=== PATIENT | female | born 1960 | race Caucasian/White ===

== ENCOUNTER → 2024-01-02 | Day surgery (SDC) | payer MEDICARE ==
[~2024-01-02] MED LIST: ACCRUFER30 MG PO; ACETAMINOPHEN 1000 MG/100 ML 100 ML IV ONE; AMIODARONE HCL200 MG PO; AMITIZA24 MCG PO; AZO BLADDER CO300 MG PO; BOTULINUM TOXIN TYPE A 100 UNIT VIAL IM ONE; CALCIUM CARBON500 MG PO; CARAFATE1 GM/10 ML PO; CRESTOR10 MG PO; DEXAMETHASONE SOD PHOS INJ 4 MG/ML SDV ONE; ELMIRON100 MG PO; EPHEDRINE SULFATE INJ 50 MG/ML VIAL ONE; FENTANYL CITRATE/PF 100MCG/2 ML INJ ONE; FLOMAX0.4 MG PO; FLONASE ALLERG9.9 ML INH; FOLIC ACID0.4 MG PO; HYDROCODON-ACE1 EAC9 PO; HYDROMET SYRUP473 ML PO; HYDROXYZINE HCL25 MG PO; HYLANDS LEG CRAMPS PO; HYOPHEN TABLET1 EACH PO; IOPAMIDOL 610MG/1ML 300 MG/ML VIAL IV ONE; LEVOTHYROXINE100 MC1 PO; LEVOTHYROXINE88 MCG PO; LIDOCAINE HCL 2% LOCAL INJ 5 ML SDV VIAL INJ ONE; LORATADINE10 MG PO; MIDODRINE HCL5 MG PO; MIRTAZAPINE15 MG PO; MONTELUKAST SOD10 MG PO; MORPHINE SULFAT30 M2 PO; NEURONTIN300 MG PO; NITROFURANTOIN100 MG PO; OMEPRAZOLE40 MG PO; ONDANSETRON HCL INJ 2MG/ML 2ML 2 MG/ML VIAL ONE; ONDANSETRON ODT8 MG PO; PROPOFOL IV EMULSION 10 MG/ML 20 ML VIAL ONE; PROZAC40 MG PO; SEVOFLURANE INHAL SOLN 250 ML PEN BTL ONE; SPIRONOLACTONE25 MG PO; SUDAFED PE SIN1 EAC2 PO; SUMATRIPTAN PO; SUMATRIPTAN SUC25 MG PO; VITAMIN C1000 MG PO; VITAMIN D3 COM1 EACH PO
[2024-01-02] MEDS: GENTAMICIN 80MG/NS 100 ML 100 ML IV ONE (06:29)
[2024-01-02] MEDS: LACTATED RINGER'S 1,000 ML ONE (06:30)
[2024-01-02] MEDS: MEROPENEM 1 GM VIAL ONE (06:30)
[2024-01-02] MEDS: FENTANYL CITRATE/PF 100MCG/2 ML INJ ONE (08:52)
[2024-01-02] MEDS: PHENAZOPYRIDINE HCL 100 MG TAB ONE (09:05)
[2024-01-02 09:55] VITALS: BP 134/75; PULSE 60; RESP 18; O2SAT 99
== END | disposition home or self-care (01) ==
LOC: OR 05:10
PROVIDERS: ATTEND Urology
DX: N13.1 Hydronephrosis with ureteral stricture, not elsewhere classified (principal); Z46.6 Encounter for fitting and adjustment of urinary device; N39.41 Urge incontinence; N81.6 Rectocele; N95.2 Postmenopausal atrophic vaginitis; I25.10 Atherosclerotic heart disease of native coronary artery without angina pectoris; I25.2 Old myocardial infarction; E78.5 Hyperlipidemia, unspecified; I48.91 Unspecified atrial fibrillation; E03.9 Hypothyroidism, unspecified; N18.4 Chronic kidney disease, stage 4 (severe); Z88.1 Allergy status to other antibiotic agents; Z88.0 Allergy status to penicillin; Z88.2 Allergy status to sulfonamides; Z88.8 Allergy status to other drugs, medicaments and biological substances; Z01.812 Encounter for preprocedural laboratory examination; Z01.818 Encounter for other preprocedural examination; Z79.899 Other long term (current) drug therapy; Z87.891 Personal history of nicotine dependence
CPT/HCPCS: 36415; 52287; 52332; 52344; 71046; 74018; 74420; 84550; 87086; C1769; C2617; J0131; J0587; J1100; J1580; J2001; J2185; J2405; J2704; J3010; J7121; Q9967

== ENCOUNTER 2024-05-07 06:23 | Inpatient (IN) | payer MEDICARE ==
[2024-05-05 14:53] LABS: BASOPHILS # (AUTO) 0.1 (0.0-0.1); BASOPHILS % 0.9 % (0.0-1.0); EOSINOPHILS # (AUTO) 0.3 (0.0-0.4); EOSINOPHILS % 5.6 % (0.0-6.0); HEMOGLOBIN 12.1 g/dL (12.0-16.0); LYMPHOCYTES # (AUTO) 1.8 (1.0-3.2); LYMPHOCYTES % 34.1 % (18.0-39.1); MEAN CORPUSCULAR HEMOGLOBIN 29.1 pg (28-32); MEAN CORPUSCULAR HGB CONC 30.3 g/dL (31-35); MEAN CORPUSCULAR VOLUME 96.2 fL (81-99); MONOCYTES # (AUTO) 0.4 (0.2-0.8); MONOCYTES % 6.7 % (4.4-11.3); NEUTROPHILS # (AUTO) 2.8 (2.1-6.9); NEUTROPHILS % 52.5 % (38.7-80.0); PLATELET COUNT 177 x10e3/uL (140-360); RED BLOOD COUNT 4.16 x10e6/uL (3.6-5.1); RED CELL DISTRIBUTION WIDTH 13.4 % (11.7-14.4); WHITE BLOOD COUNT 5.36 x10e3/uL (4.8-10.8)
[2024-05-05 15:03] LABS: INR 0.82; PROTHROMBIN TIME 11.9 seconds (11.9-14.5)
[2024-05-05 15:04] LABS: PARTIAL THROMBOPLASTIN TIME 24.8 seconds (23.8-35.5)
[2024-05-05 15:13] LABS: ANION GAP 16.1 mmol/L (8-16); CREATININE, SERUM 3.55 mg/dL (0.57-1.11); POTASSIUM 4.1 mmol/L (3.5-5.1)
[~2024-05-07] VITALS: Ht 165.1 cm; Wt 78.7 kg
[2024-05-07] VITALS (8 sets, daily range): BP systolic 102–121; BP diastolic 55–66; PULSE 70–74; RESP 16–18; TEMP 98.2–98.9; O2SAT 94–100
[~2024-05-07 06:23] MED LIST changes: -ACETAMINOPHEN 1000 MG/100 ML 100 ML IV ONE; +AMITRIPTYLINE H10 MG PO; -BOTULINUM TOXIN TYPE A 100 UNIT VIAL IM ONE; -DEXAMETHASONE SOD PHOS INJ 4 MG/ML SDV ONE; -EPHEDRINE SULFATE INJ 50 MG/ML VIAL ONE; -FENTANYL CITRATE/PF 100MCG/2 ML INJ ONE; -IOPAMIDOL 610MG/1ML 300 MG/ML VIAL IV ONE; -LIDOCAINE HCL 2% LOCAL INJ 5 ML SDV VIAL INJ ONE; +MECLIZINE HCL12.5 MG PO; -ONDANSETRON HCL INJ 2MG/ML 2ML 2 MG/ML VIAL ONE; -PROPOFOL IV EMULSION 10 MG/ML 20 ML VIAL ONE; -SEVOFLURANE INHAL SOLN 250 ML PEN BTL ONE; +SODIUM BICARBO650 MG PO; +[UNRECOGNIZED DRUG - OTHER] PO
[2024-05-07] MEDS: LACTATED RINGER'S 1,000 ML ONE (07:50)
[2024-05-07] MEDS: GENTAMICIN 80MG/NS 100 ML 200 ML IV ONE (07:55)
[2024-05-07] MEDS ORDERED: IOPAMIDOL 610MG/1ML 300 MG/ML VIAL IV ONE (07:55)
[2024-05-07] MEDS ORDERED: BOTULINUM TOXIN TYPE A 100 UNIT VIAL IM ONE (07:57)
[2024-05-07] MEDS: ONDANSETRON HCL INJ 2MG/ML 2ML 2 MG/ML VIAL ONE (07:59)
[2024-05-07] MEDS ORDERED: ACETAMINOPHEN 1000 MG/100 ML 100 ML IV ONE (08:29)
[2024-05-07] MEDS ORDERED: ACETAMINOPHEN 1000 MG/100 ML IV PRN (09:15)
[2024-05-07] MEDS ORDERED: PHENAZOPYRIDINE HCL 100 MG TAB PO PRN (09:15)
[2024-05-07] MEDS: HYDROMORPHONE 1MG/1ML INJ ONE ×2 (09:22→09:52)
[2024-05-07] MEDS: PROMETHAZINE HCL (IM) 25 MG/ML VIAL IM ONE (09:25)
[2024-05-07] MEDS: FLUCONAZOLE 100 MG/NS 50 ML 50 ML IV SCH (11:37)
[2024-05-07] MEDS: SODIUM CHLORIDE 0.9% 1000ML 1,000 ML IV SCH (11:37)
[2024-05-07] MEDS ORDERED: FENTANYL CITRATE/PF 100MCG/2 ML INJ ONE (12:35)
[2024-05-07] MEDS ORDERED: MIDAZOLAM HCL 2 MG/2 ML VIAL ONE (12:35)
[2024-05-07] MEDS ORDERED: ONDANSETRON HCL INJ 2MG/ML 2ML 2 MG/ML VIAL ONE (12:41)
[2024-05-07] MEDS ORDERED: ATROPINE SULFATE 1 MG/ML VIAL ONE (12:41)
[2024-05-07] MEDS ORDERED: SEVOFLURANE INHAL SOLN 250 ML PEN BTL ONE (12:41)
[2024-05-07] MEDS ORDERED: LIDOCAINE HCL 2% LOCAL INJ 5 ML SDV VIAL INJ ONE (12:41)
[2024-05-07] MEDS ORDERED: PROPOFOL IV EMULSION 10 MG/ML 20 ML VIAL ONE (12:41)
[2024-05-07] MEDS ORDERED: EPHEDRINE SULFATE INJ 50 MG/ML VIAL ONE (12:41)
[2024-05-07] MEDS ORDERED: DEXAMETHASONE SOD PHOS INJ 4 MG/ML SDV ONE (12:41)
[2024-05-07] MEDS ORDERED: GLYCOPYRROLATE INJ 0.2 MG/ML VIAL ONE (12:41)
[2024-05-07 12:49] LABS: ALBUMIN 4.1 g/dL (3.5-5.0); ALBUMIN/GLOBULIN RATIO 1.3 (0.8-2.0); ANION GAP 16.3 mmol/L (8-16); BILIRUBIN,TOTAL 0.3 mg/dL (0.2-1.2); CALCIUM 9.6 mg/dL (8.4-10.2); CREATININE, SERUM 3.72 mg/dL (0.57-1.11); POTASSIUM 4.3 mmol/L (3.5-5.1); TOTAL PROTEIN 7.3 g/dL (6.5-8.1)
[2024-05-07] MEDS: ACETAMINOPHEN/CODEINE 300MG - 30MG TAB PO PRN (13:29)
[2024-05-07] MEDS: HYDROMORPHONE 1MG/1ML INJ IV PRN (16:10)
[2024-05-08] VITALS (10 sets, daily range): BP systolic 90–120; BP diastolic 53–73; PULSE 72–79; RESP 16–20; TEMP 99.1–100.6; O2SAT 95–100
[2024-05-08] MEDS: DIPHENHYDRAMINE HCL 25 MG CAP PO PRN (01:59)
[2024-05-08 05:52] LABS: BASOPHILS % 0.4 % (0.0-1.0); EOSINOPHILS % 0.2 % (0.0-6.0); HEMOGLOBIN 9.6 g/dL (12.0-16.0); LYMPHOCYTES # (AUTO) 0.6 (1.0-3.2); LYMPHOCYTES % 7.7 % (18.0-39.1); MEAN CORPUSCULAR HEMOGLOBIN 29.4 pg (28-32); MEAN CORPUSCULAR VOLUME 94.8 fL (81-99); MONOCYTES # (AUTO) 0.3 (0.2-0.8); MONOCYTES % 4.2 % (4.4-11.3); NEUTROPHILS # (AUTO) 7.1 (2.1-6.9); NEUTROPHILS % 87.3 % (38.7-80.0); PLATELET COUNT 123 x10e3/uL (140-360); RED BLOOD COUNT 3.27 x10e6/uL (3.6-5.1); RED CELL DISTRIBUTION WIDTH 13.5 % (11.7-14.4)
[2024-05-08 06:16] LABS: ALBUMIN 3.5 g/dL (3.5-5.0); ALBUMIN/GLOBULIN RATIO 1.3 (0.8-2.0); BILIRUBIN,TOTAL 0.4 mg/dL (0.2-1.2); CALCIUM 9.3 mg/dL (8.4-10.2); CREATININE, SERUM 4.25 mg/dL (0.57-1.11); TOTAL PROTEIN 6.3 g/dL (6.5-8.1)
[2024-05-08] MEDS ORDERED: GENTAMICIN 80MG/NS 100 ML 100 ML IV SCH (08:00)
[2024-05-08] MEDS ORDERED: BISACODYL 10 MG SUPP PR PRN (09:15)
[2024-05-08] MEDS ORDERED: DEXTROSE 50% SYRINGE 50 ML IV PRN (09:15)
[2024-05-08] MEDS: LEVOTHYROXINE SODIUM 100 MCG TAB PO SCH (09:15)
[2024-05-08] MEDS: ONDANSETRON HCL INJ 2MG/ML 2ML 2 MG/ML VIAL IV PRN (11:03)
[2024-05-08] MEDS: SODIUM BICARBONATE 650 MG TAB PO SCH (11:04)
[2024-05-08] MEDS: DOCUSATE SODIUM 100 MG CAP PO SCH (11:04)
[2024-05-08] MEDS: GABAPENTIN 100 MG CAP PO SCH (11:04)
[2024-05-08] MEDS: MIDODRINE HCL 5 MG TABLET PO SCH (11:04)
[2024-05-08] MEDS: SENNOSIDES 8.6 MG TAB PO SCH (11:04)
[2024-05-08] MEDS: AMIODARONE HCL 200 MG TAB PO SCH (11:05)
[2024-05-08] MEDS: INSULIN LISPRO 100 UNIT/1 ML 3ML VIAL SQ SCH (11:30)
[2024-05-08] MEDS ORDERED: HYDROCODONE/APAP 7.5MG-325MG 1 EA TAB PO PRN (12:00)
[2024-05-08] MEDS: FLUCONAZOLE 100 MG TAB PO SCH (12:34)
[2024-05-08] MEDS: SUMATRIPTAN SUCCINATE 25 MG TAB PO PRN (15:06)
[2024-05-08] MEDS: LUBIPROSTONE 24 MCG CAP PO SCH (16:13)
[2024-05-08] MEDS: ACETAMINOPHEN 325 MG TAB PO PRN (16:14)
[2024-05-08] MEDS: AMITRIPTYLINE HCL 10 MG TAB PO SCH (20:51)
[2024-05-08] MEDS: MIRTAZAPINE 15 MG TAB PO SCH (20:51)
[2024-05-08] MEDS: FLUOXETINE HCL 20 MG CAP PO SCH (20:51)
[2024-05-08] MEDS: PROMETHAZINE 12.5MG/ NACL 0.9% 12.5 MG/50 ML BAG IV PRN (21:59)
[2024-05-09] VITALS (10 sets, daily range): BP systolic 90–114; BP diastolic 46–75; PULSE 65–72; RESP 14–20; TEMP 98.3–99; O2SAT 95–100
[2024-05-09 06:54] LABS: ANION GAP 16.7 mmol/L (8-16); CALCIUM 8.9 mg/dL (8.4-10.2); CREATININE, SERUM 4.47 mg/dL (0.57-1.11); POTASSIUM 4.7 mmol/L (3.5-5.1)
[2024-05-09 07:44] LABS: BASOPHILS % 0.8 % (0.0-1.0); EOSINOPHILS # (AUTO) 0.2 (0.0-0.4); EOSINOPHILS % 4.4 % (0.0-6.0); HEMATOCRIT 33.6 % (34.2-44.1); HEMOGLOBIN 10.4 g/dL (12.0-16.0); LYMPHOCYTES # (AUTO) 0.8 (1.0-3.2); LYMPHOCYTES % 20.5 % (18.0-39.1); MEAN CORPUSCULAR HEMOGLOBIN 29.1 pg (28-32); MEAN CORPUSCULAR VOLUME 94.1 fL (81-99); MONOCYTES # (AUTO) 0.3 (0.2-0.8); MONOCYTES % 6.7 % (4.4-11.3); NEUTROPHILS # (AUTO) 2.6 (2.1-6.9); NEUTROPHILS % 67.3 % (38.7-80.0); PLATELET COUNT 114 x10e3/uL (140-360); RED BLOOD COUNT 3.57 x10e6/uL (3.6-5.1); RED CELL DISTRIBUTION WIDTH 13.6 % (11.7-14.4)
[2024-05-09] MEDS ORDERED: DOCUSATE SODIUM 100 MG CAP PO SCH (09:00)
[2024-05-09] MEDS ORDERED: MECLIZINE HCL 12.5 MG TAB PO PRN (10:15)
[2024-05-09] MEDS: LORATADINE 10 MG TAB PO SCH (11:14)
[2024-05-09] MEDS: MONTELUKAST SODIUM 10 MG TAB PO SCH (11:15)
[2024-05-09] MEDS: FLUTICASONE PROPIONATE NASAL SPRAY NS SCH (11:15)
[2024-05-09] MEDS: AZELASTINE 0.1% HCL 137 MCG NASAL SPRAY NS SCH (11:16)
[2024-05-10] VITALS (9 sets, daily range): BP systolic 94–126; BP diastolic 52–65; PULSE 58–78; RESP 17–20; TEMP 98.1–99.8; O2SAT 95–99
[2024-05-10 06:01] LABS: BASOPHILS % 0.5 % (0.0-1.0); EOSINOPHILS # (AUTO) 0.4 (0.0-0.4); EOSINOPHILS % 10.4 % (0.0-6.0); HEMATOCRIT 31.7 % (34.2-44.1); HEMOGLOBIN 9.8 g/dL (12.0-16.0); LYMPHOCYTES # (AUTO) 1.1 (1.0-3.2); LYMPHOCYTES % 29.6 % (18.0-39.1); MEAN CORPUSCULAR HEMOGLOBIN 29.2 pg (28-32); MEAN CORPUSCULAR HGB CONC 30.9 g/dL (31-35); MEAN CORPUSCULAR VOLUME 94.3 fL (81-99); MONOCYTES # (AUTO) 0.4 (0.2-0.8); MONOCYTES % 9.9 % (4.4-11.3); NEUTROPHILS # (AUTO) 1.9 (2.1-6.9); NEUTROPHILS % 49.3 % (38.7-80.0); PLATELET COUNT 108 x10e3/uL (140-360); RED BLOOD COUNT 3.36 x10e6/uL (3.6-5.1); RED CELL DISTRIBUTION WIDTH 13.5 % (11.7-14.4); WHITE BLOOD COUNT 3.85 x10e3/uL (4.8-10.8)
[2024-05-10 06:46] LABS: ALBUMIN 3.3 g/dL (3.5-5.0); ALBUMIN/GLOBULIN RATIO 1.1 (0.8-2.0); ANION GAP 15.2 mmol/L (8-16); BILIRUBIN,TOTAL 0.3 mg/dL (0.2-1.2); CALCIUM 8.8 mg/dL (8.4-10.2); CREATININE, SERUM 4.93 mg/dL (0.57-1.11); MAGNESIUM 1.9 MG/DL (1.3-2.1); POTASSIUM 4.2 mmol/L (3.5-5.1); TOTAL PROTEIN 6.4 g/dL (6.5-8.1)
[2024-05-10] MEDS: ONDANSETRON HCL 4 MG ORAL DISINTEGRATING TAB PO PRN (17:10)
[2024-05-10 18:25] LABS: ANION GAP 16.3 mmol/L (8-16); CALCIUM 8.9 mg/dL (8.4-10.2); CREATININE, SERUM 5.08 mg/dL (0.57-1.11); POTASSIUM 4.3 mmol/L (3.5-5.1)
[2024-05-11] VITALS: BP 106/45; PULSE 62; RESP 18; TEMP 97.6; O2SAT 96
[2024-05-11 04:00] VITALS: BP 110/51; PULSE 60; RESP 18; TEMP 98.3; O2SAT 98
[2024-05-11 06:08] LABS: BASOPHILS % 0.6 % (0.0-1.0); EOSINOPHILS # (AUTO) 0.4 (0.0-0.4); EOSINOPHILS % 9.5 % (0.0-6.0); HEMOGLOBIN 9.9 g/dL (12.0-16.0); LYMPHOCYTES # (AUTO) 1.7 (1.0-3.2); MEAN CORPUSCULAR HEMOGLOBIN 29.4 pg (28-32); MEAN CORPUSCULAR HGB CONC 30.9 g/dL (31-35); MONOCYTES # (AUTO) 0.6 (0.2-0.8); MONOCYTES % 13.5 % (4.4-11.3); NEUTROPHILS # (AUTO) 1.8 (2.1-6.9); NEUTROPHILS % 39.2 % (38.7-80.0); PLATELET COUNT 123 x10e3/uL (140-360); RED BLOOD COUNT 3.37 x10e6/uL (3.6-5.1); RED CELL DISTRIBUTION WIDTH 13.4 % (11.7-14.4); WHITE BLOOD COUNT 4.65 x10e3/uL (4.8-10.8)
[2024-05-11 06:36] LABS: ANION GAP 15.1 mmol/L (8-16); CALCIUM 8.9 mg/dL (8.4-10.2); CREATININE, SERUM 5.02 mg/dL (0.57-1.11); POTASSIUM 4.1 mmol/L (3.5-5.1)
[2024-05-11 08:03] VITALS: BP 132/60; PULSE 59; RESP 16; TEMP 97.7; O2SAT 98
[2024-05-11 08:30] VITALS: PULSE 67; RESP 16; O2SAT 95
[2024-05-11] MEDS ORDERED: DIFLUCAN100 MG PO (10:07)
[2024-05-11 11:39] VITALS: BP 121/53; PULSE 66; RESP 17; TEMP 98.1; O2SAT 100
== END 2024-05-11 12:33 | disposition home or self-care (01) | DRG 660 ==
LOC: OR 06:23 → PACU V 09:39 → MED/SURG2 10:49
PROVIDERS: ADMIT Internal Medicine; ATTEND Internal Medicine
PROC: 0TP98DZ Removal of Intraluminal Device from Ureter, Via Natural or Artificial Opening Endoscopic (ICD-10-PCS; 2024-05-07)
PROC: 3E0K8GC Introduction of Other Therapeutic Substance into Genitourinary Tract, Via Natural or Artificial Opening Endoscopic (ICD-10-PCS; 2024-05-07)
PROC: BT141ZZ Fluoroscopy of Kidneys, Ureters and Bladder using Low Osmolar Contrast (ICD-10-PCS; 2024-05-07)
PROC: 0T768DZ Dilation of Right Ureter with Intraluminal Device, Via Natural or Artificial Opening Endoscopic (ICD-10-PCS; 2024-05-07 08:33)
PROC: 02HV33Z Insertion of Infusion Device into Superior Vena Cava, Percutaneous Approach (ICD-10-PCS; principal; 2024-05-09)
DX: N28.82 Megaloureter (principal); B37.49 Other urogenital candidiasis; F11.20 Opioid dependence, uncomplicated; Q60.0 Renal agenesis, unilateral; N13.6 Pyonephrosis; N30.11 Interstitial cystitis (chronic) with hematuria; E11.22 Type 2 diabetes mellitus with diabetic chronic kidney disease; N18.4 Chronic kidney disease, stage 4 (severe); I12.9 Hypertensive chronic kidney disease with stage 1 through stage 4 chronic kidney disease, or unspecified chronic kidney disease; E03.9 Hypothyroidism, unspecified; R11.2 Nausea with vomiting, unspecified; G89.4 Chronic pain syndrome; Z99.2 Dependence on renal dialysis; Z96.0 Presence of urogenital implants; Z87.891 Personal history of nicotine dependence
CPT/HCPCS: 36415; 71046; 74018; 74420; 76700; 80048; 80053; 83036; 83735; 85025; 85610; 85730; 87086; 93005; 94799; C1769; C2617; J0461; J0587; J1100; J1170; J1450; J1580; J2001; J2250; J2405; J2550; J7030; Q0162

== ENCOUNTER 2024-09-08 05:46 | Inpatient (IN) | payer MEDICARE ==
[2024-09-06 14:29] LABS: BASOPHILS % 0.8 % (0.0-1.0); EOSINOPHILS # (AUTO) 0.2 (0.0-0.4); EOSINOPHILS % 3.8 % (0.0-6.0); HEMATOCRIT 41.7 % (34.2-44.1); HEMOGLOBIN 12.3 g/dL (12.0-16.0); LYMPHOCYTES # (AUTO) 1.6 (1.0-3.2); LYMPHOCYTES % 32.1 % (18.0-39.1); MEAN CORPUSCULAR HEMOGLOBIN 29.7 pg (28-32); MEAN CORPUSCULAR HGB CONC 29.5 g/dL (31-35); MEAN CORPUSCULAR VOLUME 100.7 fL (81-99); MONOCYTES # (AUTO) 0.4 (0.2-0.8); MONOCYTES % 8.3 % (4.4-11.3); NEUTROPHILS # (AUTO) 2.8 (2.1-6.9); NEUTROPHILS % 54.4 % (38.7-80.0); RED BLOOD COUNT 4.14 x10e6/uL (3.6-5.1); RED CELL DISTRIBUTION WIDTH 15.9 % (11.7-14.4); WHITE BLOOD COUNT 5.05 x10e3/uL (4.8-10.8)
[2024-09-06 14:33] LABS: PLATELET COUNT 81 x10e3/uL (140-360)
[2024-09-06 14:43] LABS: CREATININE, SERUM 4.47 mg/dL (0.57-1.11); URIC ACID 5.6 mg/dL (2.6-8.0)
[2024-09-08] VITALS (7 sets, daily range): BP systolic 107–126; BP diastolic 51–80; PULSE 67–77; RESP 16–18; TEMP 97.4–98; O2SAT 97–100
[~2024-09-08] VITALS: Ht 167.6 cm; Wt 71.2 kg
[~2024-09-08 05:46] MED LIST changes: +DEPAKOTE ER500 MG PO; +DIFLUCAN100 MG PO
[2024-09-08] MEDS: LACTATED RINGER'S 1,000 ML ONE (06:53)
[2024-09-08] MEDS ORDERED: MEROPENEM 500 MG VIAL ONE (07:00)
[2024-09-08] MEDS ORDERED: Sodium Chloride 0.9% 50ML Bag ONE (07:00)
[2024-09-08] MEDS ORDERED: FENTANYL CITRATE/PF 100MCG/2 ML INJ ONE (08:54)
[2024-09-08] MEDS ORDERED: ACETAMINOPHEN 1000 MG/100 ML 100 ML IV ONE (08:54)
[2024-09-08] MEDS ORDERED: LIDOCAINE HCL 2% LOCAL INJ 5 ML SDV VIAL INJ ONE (08:54)
[2024-09-08] MEDS ORDERED: PROPOFOL IV EMULSION 10 MG/ML 20 ML VIAL ONE (08:54)
[2024-09-08] MEDS: ACETAMINOPHEN 1000 MG/100 ML 100 ML IV ONE (09:01)
[2024-09-08] MEDS: FLUCONAZOLE 100 MG/NS 50 ML 50 ML IV ONE (09:02)
[2024-09-08] MEDS ORDERED: ONDANSETRON HCL INJ 2MG/ML 2ML 2 MG/ML VIAL ONE (09:13)
[2024-09-08] MEDS ORDERED: FAMOTIDINE 20 MG/2 ML VIAL IV ONE (09:13)
[2024-09-08] MEDS ORDERED: BOTULINUM TOXIN TYPE A 100 UNIT VIAL IM ONE (09:15)
[2024-09-08] MEDS ORDERED: EPHEDRINE SULFATE INJ 50 MG/ML VIAL ONE (09:36)
[2024-09-08] MEDS ORDERED: NOREPINEPHRINE 8 MG/D5W 250 ML 250 ML ONE (09:44)
[2024-09-08] MEDS ORDERED: PHENAZOPYRIDINE HCL 100 MG TAB PO PRN (10:15)
[2024-09-08] MEDS ORDERED: DIPHENHYDRAMINE HCL 25 MG CAP PO PRN (10:15)
[2024-09-08] MEDS ORDERED: ONDANSETRON HCL INJ 2MG/ML 2ML 2 MG/ML VIAL IV PRN (10:15)
[2024-09-08] MEDS: FENTANYL CITRATE/PF 100MCG/2 ML INJ IV ONE ×2 (10:16→10:45)
[2024-09-08] MEDS: FENTANYL CITRATE/PF 100MCG/2 ML INJ ONE (11:39)
[2024-09-08] MEDS: SODIUM CHLORIDE 0.9% 1000ML 1,000 ML IV SCH (12:43)
[2024-09-08] MEDS: ACETAMINOPHEN 1000 MG/100 ML IV PRN (12:43)
[2024-09-08] MEDS ORDERED: HYDRALAZINE HCL 20 MG/ML VIAL IV PRN (14:30)
[2024-09-08] MEDS ORDERED: POLYETHYLENE GLYCOL 3350 17 GM PACK PO PRN (14:30)
[2024-09-08] MEDS ORDERED: BISACODYL 10 MG SUPP PR PRN (14:30)
[2024-09-08] MEDS: ACETAMINOPHEN/CODEINE 300MG - 30MG TAB PO PRN (14:37)
[2024-09-08] MEDS ORDERED: SENNA-S TABLET PO SCH (17:00)
[2024-09-08] MEDS ORDERED: LUBIPROSTONE 24 MCG CAP PO PRN (17:00)
[2024-09-08] MEDS: DEPAKOTE DELAYED-RELEASE TAB 500 MG PO SCH (17:02)
[2024-09-08] MEDS: TAMSULOSIN HCL 0.4 MG CAP PO SCH (17:02)
[2024-09-08] MEDS: HYDROCODONE/APAP 10MG-325MG TAB PO PRN (18:40)
[2024-09-08] MEDS: SIMVASTATIN 40 MG TAB PO SCH (20:38)
[2024-09-08] MEDS: AMITRIPTYLINE HCL 10 MG TAB PO SCH (20:38)
[2024-09-08] MEDS: FLUOXETINE HCL 20 MG CAP PO SCH (20:38)
[2024-09-08] MEDS: SENNA-S TABLET PO SCH (20:38)
[2024-09-08] MEDS: PANTOPRAZOLE SOD 40 MG TABEC PO SCH (20:38)
[2024-09-08] MEDS: MIRTAZAPINE 15 MG TAB PO SCH (20:39)
[2024-09-09] VITALS (8 sets, daily range): BP systolic 100–107; BP diastolic 45–60; PULSE 16–76; RESP 16–20; TEMP 97.3–98.5; O2SAT 94–100
[2024-09-09] MEDS: LEVOTHYROXINE SODIUM 100 MCG TAB PO SCH (05:21)
[2024-09-09 05:59] LABS: ANION GAP 15.4 mmol/L (8-16); CALCIUM 8.2 mg/dL (8.4-10.2); CREATININE, SERUM 4.56 mg/dL (0.57-1.11); POTASSIUM 4.4 mmol/L (3.5-5.1)
[2024-09-09 06:49] LABS: FREE T4 (FREE THYROXINE) 0.81 ng/dL (0.8-1.8); THYROID STIMULATING HORMONE 3.431 uIU/mL (0.350-4.940)
[2024-09-09 07:53] LABS: BASOPHILS # (AUTO) 0.1 (0.0-0.1); BASOPHILS % 0.7 % (0.0-1.0); EOSINOPHILS # (AUTO) 0.3 (0.0-0.4); EOSINOPHILS % 3.9 % (0.0-6.0); HEMOGLOBIN 9.3 g/dL (12.0-16.0); LYMPHOCYTES # (AUTO) 1.7 (1.0-3.2); LYMPHOCYTES % 24.2 % (18.0-39.1); MEAN CORPUSCULAR HEMOGLOBIN 29.9 pg (28-32); MEAN CORPUSCULAR HGB CONC 29.1 g/dL (31-35); MEAN CORPUSCULAR VOLUME 102.9 fL (81-99); MONOCYTES # (AUTO) 0.6 (0.2-0.8); MONOCYTES % 8.3 % (4.4-11.3); NEUTROPHILS # (AUTO) 4.4 (2.1-6.9); NEUTROPHILS % 62.6 % (38.7-80.0); PLATELET COUNT 53 x10e3/uL (140-360); RED BLOOD COUNT 3.11 x10e6/uL (3.6-5.1); WHITE BLOOD COUNT 6.98 x10e3/uL (4.8-10.8)
[2024-09-09] MEDS: AMIODARONE HCL 200 MG TAB PO SCH (08:51)
[2024-09-09] MEDS: MONTELUKAST SODIUM 10 MG TAB PO SCH (08:51)
[2024-09-09] MEDS: LORATADINE 10 MG TAB PO SCH (08:52)
[2024-09-09] MEDS: DOCUSATE SODIUM 100 MG CAP PO SCH (08:52)
[2024-09-09] MEDS ORDERED: SENNOSIDES 8.6 MG TAB PO SCH (09:00)
[2024-09-09 16:08] LABS: BASOPHILS % 0.7 % (0.0-1.0); EOSINOPHILS # (AUTO) 0.3 (0.0-0.4); EOSINOPHILS % 4.3 % (0.0-6.0); HEMATOCRIT 34.6 % (34.2-44.1); HEMOGLOBIN 9.8 g/dL (12.0-16.0); LYMPHOCYTES # (AUTO) 1.4 (1.0-3.2); LYMPHOCYTES % 23.1 % (18.0-39.1); MEAN CORPUSCULAR HEMOGLOBIN 30.2 pg (28-32); MEAN CORPUSCULAR HGB CONC 28.3 g/dL (31-35); MEAN CORPUSCULAR VOLUME 106.5 fL (81-99); MONOCYTES # (AUTO) 0.8 (0.2-0.8); MONOCYTES % 13.5 % (4.4-11.3); NEUTROPHILS # (AUTO) 3.5 (2.1-6.9); NEUTROPHILS % 58.1 % (38.7-80.0); RED BLOOD COUNT 3.25 x10e6/uL (3.6-5.1); RED CELL DISTRIBUTION WIDTH 16.2 % (11.7-14.4); WHITE BLOOD COUNT 6.06 x10e3/uL (4.8-10.8)
[2024-09-09 16:17] LABS: PLATELET COUNT 38 x10e3/uL (140-360)
[2024-09-09 17:52] LABS: EOSINOPHILS % (MANUAL) 7 % (0-7); LYMPHOCYTES % (MANUAL) 29 % (19-48); MONOCYTES % (MANUAL) 6 % (3.4-9.0); NEUTROPHILS % (MANUAL) 58 % (40-74)
[2024-09-09 17:53] LABS: HYPOCHROMASIA SLIGHT; PLATELET ESTIMATE MARKEDLY DECREASED; PLATELET MORPHOLOGY COMMENT NORMAL; RBC MORPHOLOGY COMMENT NORMAL
[2024-09-10 00:06] VITALS: BP 110/55; PULSE 69; RESP 18; TEMP 98; O2SAT 94
[2024-09-10 05:04] LABS: BASOPHILS % 0.6 % (0.0-1.0); EOSINOPHILS # (AUTO) 0.3 (0.0-0.4); EOSINOPHILS % 5.8 % (0.0-6.0); HEMATOCRIT 27.7 % (34.2-44.1); HEMOGLOBIN 8.1 g/dL (12.0-16.0); LYMPHOCYTES # (AUTO) 1.6 (1.0-3.2); LYMPHOCYTES % 30.3 % (18.0-39.1); MEAN CORPUSCULAR HEMOGLOBIN 29.8 pg (28-32); MEAN CORPUSCULAR HGB CONC 29.2 g/dL (31-35); MONOCYTES # (AUTO) 0.5 (0.2-0.8); NEUTROPHILS # (AUTO) 2.9 (2.1-6.9); NEUTROPHILS % 53.9 % (38.7-80.0); PLATELET COUNT 51 x10e3/uL (140-360); RED BLOOD COUNT 2.72 x10e6/uL (3.6-5.1); WHITE BLOOD COUNT 5.32 x10e3/uL (4.8-10.8)
[2024-09-10 05:30] VITALS: BP 101/47; PULSE 74; RESP 16; TEMP 98.4; O2SAT 98
[2024-09-10 05:33] LABS: MEAN CORPUSCULAR VOLUME 101.8 fL (81-99)
[2024-09-10 05:46] LABS: ANION GAP 15.4 mmol/L (8-16); CALCIUM 8.3 mg/dL (8.4-10.2); CREATININE, SERUM 4.59 mg/dL (0.57-1.11); POTASSIUM 4.4 mmol/L (3.5-5.1)
[2024-09-10 06:17] LABS: ALBUMIN 2.7 g/dL (3.5-5.0); BILIRUBIN,DIRECT 0.1 mg/dL (0.0-0.5); BILIRUBIN,TOTAL 0.3 mg/dL (0.2-1.2); TOTAL PROTEIN 5.4 g/dL (6.5-8.1)
[2024-09-10 06:36] LABS: FERRITIN 233.48 ng/mL (4.63-204.00)
[2024-09-10 06:40] VITALS: PULSE 75; PULSE 78; RESP 20; RESP 21; O2SAT 95; O2SAT 96
[2024-09-10 08:00] VITALS: BP 101/47; PULSE 78; RESP 21; TEMP 98.4; O2SAT 96
[2024-09-10 08:06] LABS: PLATELET ESTIMATE MODERATELY DECREASED; PLATELET MORPHOLOGY COMMENT NORMAL
[2024-09-10 08:26] VITALS: BP 133/58; PULSE 72; RESP 17; TEMP 98.6; O2SAT 99
[2024-09-10 12:00] VITALS: BP 109/95; PULSE 77; RESP 17; TEMP 98.1; O2SAT 98
[2024-09-10 14:53] LABS: INR 0.86; PROTHROMBIN TIME 12.3 seconds (11.9-14.5)
[2024-09-10] MEDS ORDERED: ONDANSETRON HCL 4 MG ORAL DISINTEGRATING TAB PO PRN (18:30)
[2024-09-13 10:02] LABS: HEPATITIS A ANTIBODY IGM (P) Negative; HEPATITIS B CORE AB TOTAL Negative; HEPATITIS B CORE IGM (P) Negative; HEPATITIS B SURFACE AG (P) Negative; HEPATITIS C ANTIBODY Non Reactive
== END 2024-09-10 18:20 | disposition home or self-care (01) | DRG 660 ==
LOC: OR 05:46 → PACU V 10:02 → MED/SURG 11:30
PROVIDERS: ADMIT Internal Medicine; ATTEND Internal Medicine
PROC: 3E0K8GC Introduction of Other Therapeutic Substance into Genitourinary Tract, Via Natural or Artificial Opening Endoscopic (ICD-10-PCS; 2024-09-08)
PROC: 0UJH7ZZ Inspection of Vagina and Cul-de-sac, Via Natural or Artificial Opening (ICD-10-PCS; 2024-09-08)
PROC: BT1D1ZZ Fluoroscopy of Right Kidney, Ureter and Bladder using Low Osmolar Contrast (ICD-10-PCS; 2024-09-08)
PROC: 0T768DZ Dilation of Right Ureter with Intraluminal Device, Via Natural or Artificial Opening Endoscopic (ICD-10-PCS; principal; 2024-09-08 09:04)
PROC: 0TP98DZ Removal of Intraluminal Device from Ureter, Via Natural or Artificial Opening Endoscopic (ICD-10-PCS; 2024-09-08 09:04)
DX: N13.5 Crossing vessel and stricture of ureter without hydronephrosis (principal); N18.4 Chronic kidney disease, stage 4 (severe); E11.22 Type 2 diabetes mellitus with diabetic chronic kidney disease; I12.9 Hypertensive chronic kidney disease with stage 1 through stage 4 chronic kidney disease, or unspecified chronic kidney disease; D69.6 Thrombocytopenia, unspecified; Z99.2 Dependence on renal dialysis; N30.10 Interstitial cystitis (chronic) without hematuria; E11.42 Type 2 diabetes mellitus with diabetic polyneuropathy; E78.5 Hyperlipidemia, unspecified; E03.9 Hypothyroidism, unspecified; K59.00 Constipation, unspecified; R29.6 Repeated falls; M25.552 Pain in left hip; N39.41 Urge incontinence; N95.2 Postmenopausal atrophic vaginitis; N81.6 Rectocele; Z79.890 Hormone replacement therapy; Z90.5 Acquired absence of kidney; Z96.0 Presence of urogenital implants; Z86.16 Personal history of COVID-19; Z90.49 Acquired absence of other specified parts of digestive tract; Z90.710 Acquired absence of both cervix and uterus; Z90.722 Acquired absence of ovaries, bilateral; Z90.79 Acquired absence of other genital organ(s); Z88.0 Allergy status to penicillin; Z88.1 Allergy status to other antibiotic agents; Z88.2 Allergy status to sulfonamides; Z88.8 Allergy status to other drugs, medicaments and biological substances
CPT/HCPCS: 36415; 74018; 74420; 76700; 80048; 80076; 82607; 82728; 83540; 83735; 84439; 84443; 84466; 84550; 85025; 85045; 85610; 85730; 86704; 87086; 93005; 94799; 99252; C1758; C1769; C2617; J0587; J1450; J2003; J2185; J2405; J7030